=== PATIENT | female | born 1990 | race Caucasian/White ===

== ENCOUNTER 2016-10-15 17:19 | Emergency (ER) | payer OTHER ==
[2016-10-15 17:46] VITALS: BP 110/68; PULSE 52; TEMP 98.9; BMI 21.6
--- NOTE | 2016-10-15 18:03 | PDOC ---
History of Present Illness - General History Source: Patient Exam Limitations: No Limitations - History of Present Illness Initial Comments: 10/15/16 18:11 The patient is a 26 year old female, with significant past medical history of asthma, who presents to the emergency room complaining of 2 days of a frontal headache, dizziness, sore throat, nasal congestion, and fever. She describes the headache as pressure that is exacerbated when leaning forward. 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 She reports that she feels more tired than usual. She checked her temperature this morning, which was 100.5. She notes that she has some bilateral nipple tenderness and is expecting her menses this upcoming week. She has an IUD and is not believe she is . Denies visual changes. Denies abdominal pain, nausea, vomiting, diarrhea, constipation. Denies ear aches. Denies cough, SOB. Allergies:shellfish Social history: No tobacco use. No recreational drug use. Occasional alcohol use. <Jojo Perales - Last Filed: 10/15/16 18:11> - General History Source: Patient, Old Records Exam Limitations: No Limitations <Ericka Munoz - Last Filed: 10/15/16 18:54> - General Chief Complaint: Headache Stated Complaint: FRONTAL HEADACHE AND SLIGHT DIZZINESS Time Seen by Provider: 10/15/16 17:49 Past History <Jojo Perales - Last Filed: 10/15/16 18:11> - Past Medical History Asthma: Yes (RARE) Suicide Attempt (Hx): No - Reproductive History (#): 4 Para: 2 Therapeutic (s) & number: (1) Spontaneous : 1 - Psycho/Social/Smoking Cessation Hx Anxiety: No Suicidal Ideation: No Smoking Status: No Smoking History: Never smoked Have you smoked in the past 12 months: No Number of Cigarettes Smoked Daily: 0 Hx Alcohol Use: No Drug/Substance Use Hx: No Substance Use Type: None <Ericka Munoz - Last Filed: 10/15/16 18:54> - Past Medical History Allergies/Adverse Reactions: Allergies Allergy/AdvReac Type Severity Reaction Status Date / Time shellfish derived Allergy Severe Swelling Verified 10/15/16 17:21 Home Medications: Ambulatory Orders Glycopyrrolate 1 mg PO BID 10/15/16 Review of Systems - Review of Systems Able to Perform ROS?: Yes Comments:: 10/15/16 18:12 GENERAL/CONSTITUTIONAL: +fever. No chills. No weakness. HEAD, EYES, EARS, NOSE AND THROAT: +sore throat. No change in vision. No ear pain or discharge. GASTROINTESTINAL: No nausea, vomiting, diarrhea or constipation. GENITOURINARY: No dysuria, frequency, or change in urination. CARDIOVASCULAR: No chest pain or shortness of breath. RESPIRATORY: No cough, wheezing, or hemoptysis. MUSCULOSKELETAL: No joint or muscle swelling or pain. No neck or back pain. SKIN: No rash NEUROLOGIC: +headache, dizziness. No vertigo, loss of consciousness, or change in strength/sensation. <Jojo Perales - Last Filed: 10/15/16 18:11> *Physical Exam - Vital Signs Last Vital Signs Temp Pulse Resp BP Pulse Ox 98.9 F 52 L 16 110/68 100 10/15/16 17:21 10/15/16 17:21 10/15/16 17:21 10/15/16 17:21 10/15/16 17:21 - Physical Exam Comments: 10/15/16 18:14 GENERAL: Awake, alert, and fully oriented, in no acute distress EYES: PERRLA, EOMI, sclera anicteric, conjunctiva clear ENT: Auricles normal inspection, hearing grossly normal, nares patent, oropharynx clear without exudates or edema. Moist mucosa LUNGS: Breath sounds equal, clear to auscultation bilaterally. No wheezes, and no crackles HEART: Regular rate and rhythm, normal S1 and S2, no murmurs, rubs or gallops ABDOMEN: Soft, nontender, normoactive bowel sounds. No guarding, no rebound. No masses EXTREMITIES: Normal range of motion, no edema. No clubbing or cyanosis. No cords, erythema, or tenderness NEUROLOGICAL: Cranial nerves II through XII grossly intact. Normal speech, normal gait SKIN: Warm, Dry, normal turgor, no rashes or lesions noted. <Jojo Perales - Last Filed: 10/15/16 18:11> - Vital Signs Last Vital Signs Temp Pulse Resp BP Pulse Ox 98.9 F 52 L 16 110/68 100 10/15/16 17:21 10/15/16 17:21 10/15/16 17:21 10/15/16 17:21 10/15/16 17:21 <Ericka Munoz - Last Filed: 10/15/16 18:54> Medical Decision Making - Medical Decision Making 10/15/16 18:01 26-year-old female with history of asthma presents to the emergency Department with complaints of 2-3 day history of normalized weakness, nasal congestion, sore throat and "pressure in her head ". Differential diagnosis includes but is not limited to: URI, viral syndrome, sinusitis. Plan: 1. Urine analysis and urine 2. Pain management 3. Observe and reevaluate 10/15/16 18:34 Addendum: Urine analysis and urine are negative. Plan is to discharge home. I have advised the patient to take over the counter anti- decongestant. NSAIDs as needed for pain. Return to the ED if symptoms persist , worsen or new symptoms arise. <Ericka Muonz - Last Filed: 10/15/16 18:54> *DC/Admit/Observation/Transfer - Attestations Scribe Attestion: 10/15/16 18:14 Documentation prepared by LORENZO Campos, acting as medical front desk specialist for Ericka Munoz MD. <Jojo Perales - Last Filed: 10/15/16 18:11> - Discharge Dispostion Admit: No - Attestations Physician Attestion: 10/15/16 18:02 I, Dr. Ericka Munoz, attest that the scribes documentation that appears above has been prepared under my direction and personally reviewed by me in its entirety. I confirmed that the note above accurately reflects all work, treatment, procedures, and medical decision-making performed by me. <Ericka Munoz - Last Filed: 10/15/16 18:54> Diagnosis at time of Disposition: Headache - Discharge Dispostion Disposition: HOME Condition at time of disposition: Stable - Patient Instructions Additional Instructions: You may take ibuprofen 600-800mg every 6-8 hours as needed for pain. You may also take an over the counter anti-allergy medication such as Claritin or Zyrtec. Follow-up with your primary care physician and return to the ED if your symptoms persist, worsen or new symptoms arise. - Post Discharge Activity Work/School Note: Back to Work
[2016-10-15 18:17] LABS: URINE APPEARANCE Clear; URINE BILIRUBIN Negative (NEGATIVE); URINE BLOOD Negative (NEGATIVE); URINE COLOR YELLOW; URINE GLUCOSE (UA) Negative (NEGATIVE); URINE KETONE Negative (NEGATIVE); URINE LEUK ESTERASE Negative (NEGATIVE); URINE NITRITE Negative (NEGATIVE); URINE PROTEIN Negative (NEGATIVE); URINE UROBILINOGEN 0.2 (0.2-1.0)
[2016-10-15] MEDS ORDERED: IBUPROFEN 400 MG TABLET (FP) PO ONE ×2 (18:28→18:49)
== END 2016-10-15 18:58 | disposition home or self-care (01) ==
LOC: FER 17:19
DX: R51 Headache (principal); J45.909 Unspecified asthma, uncomplicated
CPT/HCPCS: 81003; 84703; 99282-25

== ENCOUNTER 2016-11-16 23:35 | Emergency (ER) | payer OTHER ==
[2016-11-16 23:43] VITALS: BP 118/77; PULSE 61; TEMP 98.5; BMI 22.8
--- NOTE | 2016-11-17 00:09 | PDOC ---
History of Present Illness - General Chief Complaint: Back Pain Stated Complaint: BACK PAIN Time Seen by Provider: 11/16/16 23:51 History Source: Patient Exam Limitations: No Limitations - History of Present Illness Initial Comments: 11/17/16 00:24 This is a 18-year-old female has a long history of chronic low back pain. Patient has acute exacerbation of her chronic low back pain intermittently when she moves wrong or does something that causes it to flareup. Patient said she leaned over and he had flared up. Patient has not taken anything for the pain and came in for evaluation. Patient says at her baseline she does have chronic mild low back pain with intermittent flareups. Patient denies any radiation down her legs. Patient denies any numbness or weakness of her legs or loss of urinary or so bowel incontinence. PAST MEDICAL HISTORY: no significant history PAST SURGICAL HISTORY: no significant history FAMILY HISTORY: no pertinant history SOCIAL HISTORY: Pt lives with family and is employed. MEDICATIONS: reviewed ALLERGIES: As per nursing notes Review of Systems General: No fevers or chills, no weakness, no weight loss HEENT: No change in vision. No sore throat,. No ear pain CardioVascular: No chest pain or shortness of breath Respiratory:No cough, or wheezing. Gastrointestinal: no nausea, vomitting, diarrhea or constipation, No rectal bleeding Genitourinary: No dysuria, hematuria, or frequency Musculoskeletal: Chronic low back pain with acute exacerbation intermittently Neurologic: No headache, vertigo, dizziness or loss of consciousness Psychiatric: nor depression Skin: No rashes or easy bruising Endocrine: no increased thirst or abnormal weight change Allergic: no skin or latex allergy All other systems reviewed and normal GENERAL: The patient is awake, alert, and fully oriented, in no acute distress. HEAD: Normal with no signs of trauma. EYES: Pupils equal, round and reactive to light, extraocular movements intact, sclera anicteric, conjunctiva clear. EXTREMITIES: Normal range of motion, no edema. BACK: There is some discomfort and spasm bilateral paraspinal in the upper lumbar spine area. There is no bony tenderness of the thoracic lumbar sacral spine. NEUROLOGICAL: Normal speech, normal gait. PSYCH: Normal mood, normal affect. SKIN: Warm, Dry, normal turgor, no rashes or lesions noted. Assessment and plan: This is a 26-year-old female who comes in with acute exacerbation of chronic back pain. Patient was given a shot of Toradol for pain and a prescription for naproxen was sent to her pharmacy. Patient requested an follow-up so I gave her orthopedic follow-up. Past History - Past Medical History Allergies/Adverse Reactions: Allergies Allergy/AdvReac Type Severity Reaction Status Date / Time shellfish derived Allergy Severe Swelling Verified 10/15/16 17:21 No Known Drug Allergies Allergy Verified 11/16/16 23:36 Home Medications: Ambulatory Orders Glycopyrrolate 1 mg PO BID 10/15/16 Albuterol Sulfate Inhaler - [Ventolin Hfa Inhaler -] 1 puff IH PRN PRN 11/16/16 Naproxen [Naprosyn -] 500 mg PO BID #14 tablet 11/17/16 Asthma: Yes (RARE) Suicide Attempt (Hx): No Other medical history: HYPERHYDROSIS - Reproductive History (#): 4 Para: 2 Therapeutic (s) & number: (1) Spontaneous : 1 - Psycho/Social/Smoking Cessation Hx Anxiety: No Suicidal Ideation: No Smoking Status: No Smoking History: Never smoked Have you smoked in the past 12 months: No Number of Cigarettes Smoked Daily: 0 Hx Alcohol Use: No Drug/Substance Use Hx: No Substance Use Type: None *Physical Exam - Vital Signs Last Vital Signs Temp Pulse Resp BP Pulse Ox 98.5 F 61 16 118/77 100 11/16/16 23:40 11/16/16 23:40 11/16/16 23:40 11/16/16 23:40 11/16/16 23:40 *DC/Admit/Observation/Transfer Diagnosis at time of Disposition: Chronic back pain Qualifiers: Back pain location: low back pain Back pain laterality: midline Sciatica presence: without sciatica Qualified Code(s): M54.5 - Low back pain - Discharge Dispostion Disposition: HOME Condition at time of disposition: Stable Admit: No - Prescriptions Prescriptions: Naproxen [Naprosyn -] 500 mg PO BID #14 tablet - Referrals Referrals: Adrián Browning [Primary Care Provider] - - Patient Instructions Additional Instructions: For the pain take naproxen 1 tablet twice a day if needed. In addition to the naproxen U can also take Tylenol 1 tablet every 4 hours. Follow-up with an orthopedist if you need an orthopedist call Dr. Rosales at [phone] for an appointment. Return to the emergency department immediately with ANY new, persistent or worsening symptoms. Continue any medications as previously prescribed by your physician. You should follow up with your primary doctor as soon as possible regarding today's emergency department visit. . Please make sure your doctor reviews the results of your emergency evaluation. Thank you for coming to the Emergency Department today for your care. It was a pleasure to see you today. Please note that your evaluation is INCOMPLETE until you follow-up with your doctor.
[2016-11-17] MEDS ORDERED: KETOROLAC TROMETHAMINE 60 MG/2 ML VIAL IM ONE (00:17)
[2016-11-17] MEDS ORDERED: KETOROLAC TROMETHAMINE 60 MG/2 ML VIAL ONE (00:24)
== END 2016-11-17 00:31 | disposition home or self-care (01) ==
LOC: FER 23:35
PROC: 3E0233Z Introduction of Anti-inflammatory into Muscle, Percutaneous Approach (ICD-10-PCS; principal; 2016-11-16)
DX: M54.5 Low back pain (principal); G89.29 Other chronic pain; J45.909 Unspecified asthma, uncomplicated; R61 Generalized hyperhidrosis
CPT/HCPCS: 99282-25

== ENCOUNTER 2019-02-25 22:38 | Emergency (ER) | payer OTHER ==
[2019-02-25 22:45] VITALS: BP 138/79; PULSE 75; TEMP 97.8; BMI 23.3
--- NOTE | 2019-02-25 22:59 | PDOC ---
History of Present Illness - General Chief Complaint: Lightheaded Stated Complaint: DIZZYNESS Time Seen by Provider: 02/25/19 22:53 Past History - Past Medical History Allergies/Adverse Reactions: Allergies Allergy/AdvReac Type Severity Reaction Status Date / Time shellfish derived Allergy Severe Swelling Verified 02/25/19 22:39 No Known Drug Allergies Allergy Verified 02/25/19 22:39 Home Medications: Ambulatory Orders Albuterol Sulfate Inhaler - [Ventolin Hfa Inhaler -] 1 puff IH PRN PRN 11/16/16 Asthma: Yes (RARE) COPD: No - Reproductive History (#): 4 Para: 2 Therapeutic (s) & number: (1) Spontaneous : 1 - Psycho Social/Smoking Cessation Hx Smoking Status: No Smoking History: Never smoked Have you smoked in the past 12 months: No Number of Cigarettes Smoked Daily: 0 Information on smoking cessation initiated: No Hx Alcohol Use: Yes Drug/Substance Use Hx: No Substance Use Type: None *Physical Exam - Vital Signs Last Vital Signs Temp Pulse Resp BP Pulse Ox 97.8 F 75 16 138/79 100 02/25/19 22:41 02/25/19 22:41 02/25/19 22:41 02/25/19 22:41 02/25/19 22:41 - Physical Exam General Appearance: Yes: Mild Distress. No: Nourished, Appropriately Dressed, Apparent Distress, Disheveled, Moderate Distress, Severe Distress, Alcohol on Breath, Intoxicated, Cachetic, Obese, Thin, Other HEENT: positive: EOMI, LENNY, Normal ENT Inspection, Symmetrical, TMs Normal, Pharynx Normal Neck: positive: Trachea midline, Supple. negative: Tender, Normal Thyroid, Rigid, Carotid bruit, Decreased range of motion, Stridor, Lymphadenopathy (R), Lymphadenopathy (L), Rigidity, Tender lateral, Tender midline, Thyromegaly, Other Respiratory/Chest: positive: Lungs Clear, Normal Breath Sounds. negative: Chest Tender, Respiratory Distress, Accessory Muscle Use, Labored Respiration, Rapid RR, Decreased Breath Sounds, Paradoxal Breathing, Crackles, Rales, Rhonchi , Stridor, Wheezing, Hyperresonant, Dullness, Plerual Rub, Other Cardiovascular: positive: Regular Rhythm, Regular Rate, S1, S2 Gastrointestinal/Abdominal: positive: Normal Bowel Sounds, Flat, Soft. negative : Tender, Organomegaly, Pulsatile Mass, Increased Bowel Sounds, Decreased BS, Protuberent, Distended, Guarding, Rebound, Tenderness, Hernia, Mass, Hepatomegaly, Spleenomegaly, Other Musculoskeletal: positive: Normal Inspection, CVA Tenderness. negative: CVA Tenderness (R), CVA Tenderness (L), Decreased Range of Motion, Muscle Spasm, Vertebral Tenderness, Other Extremity: positive: Normal Capillary Refill, Normal Inspection, Normal Range of Motion, Tender, Pelvis Stable. negative: Coldness, Cyanosis, Delayed Capillary Refill, Pedal Edema, Swelling, Calf Tenderness, Erythema, Inflammation , Other Integumentary: positive: Normal Color, Dry, Warm. 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 negative: Abnormal Cranial NS, Respond to painful stimul, Responsive, EOM Palsy, Facial Droop, Numbness, Sensory Deficit, Finger to Nose, Confused, Disoriented, Depressed Affect, Babinski, Other Medical Decision Making - Medical Decision Making 02/25/19 23:44 Pt comes with nausea after driving in a car for hours doing [employer] eats with a leaky battery; ?sulfuric acid fumes. Unknown CO posioning. We will treat with O2 as we await carboxyhb results. 02/26/19 00:06 CO level is WNL. Pt is stable for discharge home 02/26/19 00:07 Note: Pt has a bluish tinge to her arms bilaterally; however she has no cyanosis of her lips or face or fingers or low pulsox. Discharge - Discharge Information Problems reviewed: Yes Clinical Impression/Diagnosis: Nausea, Inhalation of noxious fumes Condition: Stable Disposition: HOME - Admission No - Follow up/Referral Referrals: Adrián Browning [Primary Care Provider] - - Patient Discharge Instructions Patient Printed Discharge Instructions: DI for Nausea -- Adult - Post Discharge Activity
== END 2019-02-26 00:06 | disposition home or self-care (01) ==
LOC: FER 22:38
DX: T59.91XA Toxic effect of unspecified gases, fumes and vapors, accidental (unintentional), initial encounter (principal); R11.0 Nausea; Y92.89 Other specified places as the place of occurrence of the external cause
CPT/HCPCS: 82375; 99281-25

== ENCOUNTER 2019-10-20 01:03 | Emergency (ER) | payer OTHER ==
--- NOTE | 2019-10-20 01:06 | PDOC ---
History of Present Illness - General Chief Complaint: Pain, Acute Stated Complaint: NAUSEA/DIZZY X 4 HOURS, LLQ PAIN X 1 WEEK Time Seen by Provider: 10/20/19 01:05 - History of Present Illness Initial Comments: 10/20/19 01:34 This 29-year-old woman with a history of asthma and chronic lower back pain presents with nausea for the last 4 hours (no vomiting). She has had intermittent lower abdominal discomfort (primarily left lower quadrant) and constipation for the last few weeks. In the last several days, she has noted narrow caliber of stools that are somewhat darker than they normally are. She denies melena or hematochezia. Although she has never been diagnosed as having irritable bowel syndrome, she has had episodes of chronic diarrhea in the past as well as postprandial lower abdominal discomfort. She has never been seen by a map maker. She denies fever/chills, dysuria/urinary frequency or urgency/hematuria. No history of kidney stones 2 weeks ago, during a heat wave, she had a syncopal episode and was seen at urgent care. She was diagnosed being dehydrated and received IV fluids. Since then, she has been somewhat lightheaded but has had no other syncopal episodes. No daily medications No known drug allergies; shellfish allergy Non-smoker; no daily alcohol/other recreational drug use Past History - Medical History Allergies/Adverse Reactions: Allergies Allergy/AdvReac Type Severity Reaction Status Date / Time shellfish derived Allergy Severe Swelling Verified 10/20/19 01:05 No Known Drug Allergies Allergy Verified 10/20/19 01:05 Home Medications: Ambulatory Orders Albuterol Sulfate Inhaler - [Ventolin Hfa Inhaler -] 1 puff IH PRN PRN 11/16/16 Ondansetron [Zofran *Odt*] 4 mg SL BID PRN #10 od.tablet MDD 2 tabs 10/20/19 Asthma: Yes (RARE) COPD: No - Reproductive History (#): 4 Para: 2 Therapeutic (s) & number: (1) Spontaneous : 1 - Psycho-Social/Smoking History Smoking Status: No Smoking History: Never smoked Have you smoked in the past 12 months: No Number of Cigarettes Smoked Daily: 0 Abd/GI Specific PMHX - Complaint Specific PMHX Colitis: No Diverticulitis: No Gall Bladder Disease: No GERD: No Hepatitis: No Irritable Bowel Synd (IBS): No Review of Systems - Review of Systems Able to Perform ROS?: Yes Comments:: 12 point review of systems is negative except for what is noted in the history of present illness *Physical Exam - Physical Exam GENERAL: Adult female, somewhat anxious but in no acute distress; vital signs as noted HEAD: Normal with no signs of trauma. EYES: PERRLA, EOMI, sclera anicteric, conjunctiva clear. ENT: Ears normal, nares patent, oropharynx clear without exudates. Dry mucous membranes. NECK: Normal range of motion, supple without lymphadenopathy, JVD, or masses. LUNGS: Breath sounds equal, clear to auscultation bilaterally. No wheezes, and no crackles. HEART:Regular rate and rhythm, normal S1 and S2 without murmur, rub or gallop. ABDOMEN:.normal bowel sounds; mild left lower quadrant tenderness; no guarding or rebound.No masses No distention. EXTREMITIES: Normal range of motion, no edema. No clubbing or cyanosis. No erythema, or tenderness. NEUROLOGICAL: Cranial nerves II through XII grossly intact. Normal speech. No focal neurological deficits. MUSCULOSKELETAL: Back non-tender to palpation, no CVA tenderness SKIN: Warm, Dry, normal turgor, no rashes or lesions noted. ED Treatment Course - LABORATORY CBC & Chemistry Diagram: 10/20/19 01:15 10/20/19 01:15 ED Progress Note - Progress Note Progress Note: As noted above, this 29-year-old woman presents with several hour history of nausea without vomiting and a few weeks of intermittent abdominal discomfort (mainly left lower quadrant) in association with changes in her bowel movements (narrow caliber). Exam as noted with minimal left lower quadrant tenderness; no masses or peritoneal irritation signs present. IV access obtained and CBC/chemistry profile/urinalysis/PGU sent Zofran 4 mg IV and 1 L normal saline administered. The patient reports feeling significantly better after Zofran IV and a liter of IV hydration Urinalysis notable for specific gravity 1.26 and 1+ ketones; remainder of the urinalysis is normal. PGU is negative CBC and chemistry profile are essentially normal Clinical presentation consistent with nausea and mild dehydration. This may be related to early, mild gastroenteritis (viral or food related). The more chronic symptoms of changes in stool caliber and intermittent discomfort may be irritable bowel syndrome but certainly will need elective work-up. The patient has a PMD (Dr. Pop Browning) but does not have a map maker. Patient will be given Dr. Oliva's referral information. She will be discharged with instructions to maintain clear liquids and advance diet slowly. Prescription for Zofran ODT 4 mg up to twice a day as needed for nausea/vomiting (#10) sent to her pharmacy. She should contact her PMD and follow-up either with him or with Dr. Oliva within the next few days. She should return to the ER if she has persistent nausea/vomiting, persistent severe abdominal pain or fever Discharge - Discharge Information Problems reviewed: Yes Clinical Impression/Diagnosis: Nausea Condition: Stable Disposition: HOME - Additional Discharge Information Prescriptions: Ondansetron [Zofran *Odt*] 4 mg SL BID PRN #10 od.tablet MDD 2 tabs PRN Reason: Nausea - Follow up/Referral Referrals: Norma Oliva MD [Staff Physician] - - Patient Discharge Instructions Patient Printed Discharge Instructions: DI for Irritable Bowel Syndrome, DI for Nausea -- Adult Additional Instructions: Clear liquids, advance diet slowly Zofran ODT 4 mg up to twice a day as needed for nausea Contact your general doctor and discuss tonight's ER visit Follow-up with your general doctor and/or map maker ()within 5 days Return to ER if you have persistent severe abdominal pain, vomiting or fever - Post Discharge Activity
[2019-10-20 01:18] VITALS: BP 105/73; PULSE 81; TEMP 97.9; BMI 22.6
[2019-10-20] MEDS ORDERED: ONDANSETRON 4 MG/2 ML VIAL IVPUSH ONE (01:27)
[2019-10-20] MEDS ORDERED: SODIUM CHLORIDE 1,000 ML IV STA (01:30)
[2019-10-20] MEDS ORDERED: ONDANSETRON 4 MG/2 ML VIAL ONE (01:31)
[2019-10-20 01:56] LABS: BASO % 0.3 % (0-2.0); EOS % 1.7 % (0-4.5); HEMATOCRIT 34.9 % (32.4-45.2); HEMOGLOBIN 11.3 GM/dL (10.7-15.3); LYMPH % 29.7 % (8-40); MCHC 32.4 g/dl (32.0-36.0); MEAN CELL VOLUME 80.2 fl (80-96); MEAN PLT VOLUME 10.7 fl (7.5-11.1); MONO % 9.4 % (3.8-10.2); NEUT % 58.9 % (42.8-82.8); PLATELET COUNT 187 K/MM3 (134-434); RBC 4.35 M/mm3 (3.60-5.2); RDW 15.3 % (11.6-15.6); WHITE BLOOD COUNT 7.1 K/mm3 (4.0-10.0)
[2019-10-20 02:00] LABS: URINE APPEARANCE CLEAR; URINE BILIRUBIN NEGATIVE (NEGATIVE); URINE COLOR YELLOW; URINE GLUCOSE (UA) NEGATIVE (NEGATIVE); URINE KETONE TRACE (NEGATIVE); URINE LEUK ESTERASE NEGATIVE (NEGATIVE); URINE NITRITE NEGATIVE (NEGATIVE); URINE PROTEIN NEGATIVE (NEGATIVE); URINE UROBILINOGEN 0.2 mg/dL (0.2-1.0)
[2019-10-20 02:04] LABS: HCG,QUALITATIVE URINE Negative
[2019-10-20 02:25] LABS: ALBUMIN 3.6 g/dl (3.4-5.0); BILIRUBIN,TOTAL 0.2 mg/dL (0.2-1); BLOOD UREA NITROGEN 14.6 mg/dL (7-18); CALCIUM 8.7 mg/dL (8.5-10.1); CREATININE 1.2 mg/dL (0.55-1.3); POTASSIUM 4.1 mmol/L (3.5-5.1); TOT PROT 7.1 g/dl (6.4-8.2)
== END 2019-10-20 02:45 | disposition home or self-care (01) ==
LOC: FER 01:03
PROC: 3E033GC Introduction of Other Therapeutic Substance into Peripheral Vein, Percutaneous Approach (ICD-10-PCS; principal; 2019-10-20)
PROC: 3E0337Z Introduction of Electrolytic and Water Balance Substance into Peripheral Vein, Percutaneous Approach (ICD-10-PCS; 2019-10-20)
DX: R11.0 Nausea (principal)
CPT/HCPCS: 36415; 80053; 81003; 84703; 85025; 99284-25